=== PATIENT | female | born 1980 ===

== ENCOUNTER 2022-11-20 11:32 | Emergency (ER) | payer MEDICAID ==
[2022-11-20] MEDS ORDERED: Aspirin 81 MG Tab.Chew PO ONE (11:58)
[2022-11-20] MEDS ORDERED: Ketorolac 30 MG/ML SDV IVPUSH ONE (11:58)
[2022-11-20] MEDS ORDERED: Sodium Chloride 0.9% 1,000 ML IV SCH (12:00)
[2022-11-20 12:05] LABS: BASOPHILS PERCENT AUTO 0.2 % (0.0-1.5); EOSINOPHILS ABSOLUTE AUTO 0.3 K/uL (0.0-0.7); EOSINOPHILS PERCENT AUTO 3.8 % (0.0-7.0); HEMATOCRIT 38.7 % (36.0-46.0); HEMOGLOBIN 12.6 g/dL (12.0-16.0); LYMPHOCYTES PERCENT AUTO 35.1 % (16.0-40.0); MEAN CORPUSCULAR HEMOGLOBIN 26.7 pg (27.0-32.0); MEAN CORPUSCULAR HGB CONC 32.6 g/dL (31.0-37.0); MONOCYTES ABSOLUTE AUTO 0.5 K/uL (0.0-0.8); NEUTROPHILS ABSOLUTE AUTO 4.7 K/uL (1.4-5.7); NEUTROPHILS PERCENT AUTO 54.9 % (48.0-80.0); NRBC ABSOLUTE 0 K/uL; PLATELET COUNT,PLT 320 K/uL (150-400); RED BLOOD CELL COUNT 4.72 M/uL (4.30-5.90); WHITE BLOOD CELL COUNT,WBC 8.63 K/uL (4.0-11.0)
[2022-11-20 13:12] LABS: A/G RATIO 0.8 (0.9-1.6); ALBUMIN 3.3 g/dL (3.4-5.0); BILIRUBIN TOTAL 0.2 mg/dL (0.2-1.0); CALCIUM 8.8 mg/dL (8.5-10.1); CARBON DIOXIDE,CO2 27.5 mmol/L (21.0-32.0); CREATININE 0.7 mg/dL (0.6-1.0); EST CRCL DRUG DOSING (CG) 111.65 mL/min; POTASSIUM,K 3.7 mmol/L (3.5-5.1); PROTEIN TOTAL,TP 7.3 g/dL (6.4-8.2); TSH ULTRASENSITIVE 2.16 uIU/mL (0.36-3.74)
[2022-11-20] MEDS ORDERED: Iopamidol 755 MG/ML 500 ML Multipack Bottle IVPUSH ONE (14:18)
== END 2022-11-20 15:36 | disposition home or self-care (01) ==
LOC: MW.ED 11:32
DX: R07.2 Precordial pain (principal)
CPT/HCPCS: 36415; 71045; 71275; 80053; 84443; 84484; 85025; 85379; 93005; 96361; 96374; 99285; A9270; J1885; J7030; Q9967; 93010; 99283